=== PATIENT | male | born 1955 | race Caucasian/White ===

== ENCOUNTER → 2017-09-13 | Outpatient (CLI) | payer BC ==
[~2017-09-13] MED LIST: GLUCOPHAGE500 MG PO; LEVEMIR; LISINOPRIL10 MG PO; NOVOLOG100 UNIT/1 SQ; PRILOSEC 20 MG20 MG PO
== END ==
LOC: RAD 16:25
DX: M72.2 Plantar fascial fibromatosis (principal); I70.0 Atherosclerosis of aorta; M79.89 Other specified soft tissue disorders; M25.572 Pain in left ankle and joints of left foot

== ENCOUNTER 2018-05-20 09:07 | Emergency (ER) | payer BC ==
[~2018-05-20] VITALS: Ht 172.7 cm; Wt 79.4 kg
[2018-05-20 09:32] LABS: URINE BILIRUBIN NEGATIVE (Negative); URINE BLOOD 3+ (Negative); URINE CLARITY CLEAR; URINE COLOR YELLOW; URINE GLUCOSE-RANDOM* 3+ (Negative); URINE KETONES NEGATIVE (Negative); URINE LEUKOCYTES-REFLEX NEGATIVE (Negative); URINE NITRITE-REFLEX NEGATIVE (Negative); URINE PROTEIN (DIPSTICK) TRACE (Negative); URINE UROBILINOGEN 0.2 E.U./dl (0.2-1.0)
[2018-05-20 09:50] LABS: BACTERIA-REFLEX 1-9 Few /HPF (None Seen); CASTS None Seen /LPF (None Seen); CRYSTALS None Seen /LPF (None Seen); SQUAMOUS None Seen /LPF (0-3); URINE RBC >20 Many /HPF (0-2); URINE WBC-REFLEX None Seen /HPF (0-5)
[2018-05-20 09:58] LABS: HEMATOCRIT 35.9 % (42.0-52.0); HEMOGLOBIN 11.7 gm/dL (14.0-18.0); MCH 31.5 pg (26.0-34.0); MCHC 32.6 g/dL (28.0-37.0); MCV 96.6 fL (80.0-100.0); RBC 3.72 mil/uL (4.50-6.00); RDW 13.4 % (10.5-14.5); WBC 4.6 thou/uL (4.0-11.0)
[2018-05-20 10:04] LABS: CALCIUM 9.3 mg/dL (8.5-10.1); CREATININE 1.7 mg/dL (0.7-1.3); POTASSIUM 5.3 mmol/L (3.5-5.1)
[2018-05-20 10:07] LABS: URIC ACID* 4.9 mg/dL (2.6-7.2)
[2018-05-20] MEDS ORDERED: FLOMAX0.4 MG PO (10:36)
[2018-05-20] MEDS ORDERED: TRAMADOL 50 MG50 MG PO (10:40)
[2018-05-20 11:04] VITALS: BP 149/99
[2018-05-24 08:09] LABS: STONE CA OXALATE MONOHYDRATE 95 % (()); STONE COLOR Brown (()); STONE COMMENT Note: (()); STONE SIZE 4x3x2 mm (()); STONE WEIGHT 28.9 mg (())
== END 2018-05-20 11:06 | disposition home or self-care (01) ==
LOC: ER 09:07
PROVIDERS: Emergency Medicine
DX: N20.0 Calculus of kidney (principal); E11.22 Type 2 diabetes mellitus with diabetic chronic kidney disease; N18.9 Chronic kidney disease, unspecified; M81.0 Age-related osteoporosis without current pathological fracture; R33.9 Retention of urine, unspecified; Z87.891 Personal history of nicotine dependence; Z87.442 Personal history of urinary calculi; Z79.4 Long term (current) use of insulin